=== PATIENT | male | born 1990 | race Caucasian/White ===

== ENCOUNTER → 2022-06-07 11:23 | Outpatient (CLI) | payer BC, SELFPAY | PROVIDERS: PCP Family Medicine; Visit Provider Family Medicine | DX: J11.1 Influenza due to unidentified influenza virus with other respiratory manifestations (principal) ==

== ENCOUNTER 2022-08-02 14:14 | Emergency (ER) | payer BC, SELFPAY ==
--- NOTE | 2022-08-02 14:22 | XR_ITS ---
FINAL REPORT CLINICAL HISTORY: SOA AND CONGESTION COMPARISON: 07/31/2016 FINDINGS: TWO-VIEW CHEST Two views of the chest were obtained. The heart size and pulmonary vascularity are within normal limits. The mediastinum is normal. No acute pulmonary abnormality is identified. There is no pneumothorax. The bony thorax is intact. IMPRESSION: No active cardiopulmonary disease. Reviewed, Interpreted and Dictated by Jesús Jackson MD Transcribed by Swati Guillen Authenticated and [facility]
[2022-08-02 14:50] VITALS: BP 159/101; PULSE 127; RESP 21; TEMP 36.9; O2SAT 97; BMI 61.0
[2022-08-02 14:51] LABS: Adenovirus,PCR Not Detected (NotDetected); Bordetella Pertussis Not Detected (NotDetected); Chlamydophila Pneumoniae, PCR Not Detected (NotDetected); Coronavirus 229E Not Detected (NotDetected); Coronavirus NL63 Not Detected (NotDetected); Coronavirus OC43 Not Detected (NotDetected); Coronovirus HKU1,PCR Not Detected (NotDetected); Human Metapneumovirus Not Detected (NotDetected); Influenza A, PCR Not Detected (NotDetected); Influenza AH1, 2009 Not Detected (NotDetected); Influenza AH1, PCR Not Detected (NotDetected); Influenza AH3,PCR Not Detected (NotDetected); Influenza B, PCR Not Detected (NotDetected); Mycoplasma Pneumoniae, PCR Not Detected (NotDetected); Parainfluenza 1, PCR Not Detected (NotDetected); Parainfluenza 2, PCR Not Detected (NotDetected); Parainfluenza 3, PCR Not Detected (NotDetected); Parainfluenza 4, PCR Not Detected (NotDetected); Respiratory Syncytial Virus Not Detected (NotDetected); Rhinovirus/Enterovirus Not Detected (NotDetected)
--- NOTE | 2022-08-02 15:21 | EXP.UTC ---
Discharge Plan Disposition Patient Disposition: Home, Self-Care Condition: Good Prescriptions Prescriptions: New azithromycin [Zithromax Z-Luis] 250 mg tablet See Rx Instructions .ROUTE .COMPLEX 5 Days Qty: 6 0RF Rx Instructions: For 250 mg dose pack: take 500 mg today (day 1), then 250 mg for 4 days (days 2-5) methylprednisolone [Medrol (Luis)] 4 mg tablets,dose pack See Rx Instructions .Route .COMPLEX 6 Days Qty: 21 0RF Rx Instructions: taper pack; guaifenesin [Mucinex] 600 mg tablet extended release 12hr 600 - 1,200 mg PO BID PRN (Reason: cough) Qty: 20 0RF benzonatate 100 mg capsule 100 mg PO TID PRN (Reason: cough) Qty: 30 0RF Referrals Follow up/Referrals: Rosalio Joyce MD [Primary Care Provider] - See instructions Activity Restrictions/Add. Instructions Additional Instructions/Restrictions: Start antibiotic today. Be sure to complete entire prescription even if feeling better Monitor temp. Tylenol every 4 hours as needed and / or ibuprofen every 6 hours as needed ( As long as your primary care physician has told you that it ok to take both. For fever/aches/pains ER if no less than 101 despite Tylenol or Motrin Humidifier/vaporizer or hot steamy shower Mucinex for your cough and cough suppressant only at night. Be sure to drink lots of water. *Tessalon Perles will not cause drowsiness but use at bedtime to help stop cough so that you may get some rest. *Start steroid today. Helps with inflammation therefore, cough and wheezing. Follow directions on the package. Reviewed side effects. Patient reports taking them before. Follow up IMMEDIATELY for new or worsening of symptoms OR no noticeable improvement over the next 48-72 hours. 911 immediately for any life threatening symptoms such as chest pain or difficulty breathing Clinical Impressions Clinical Impression: Sinusitis, Bronchitis Stand Alone Forms Stand Alone Forms: Work/School Release Instructions Patient Instructions: Sinusitis, Acute Bronchitis, DI for Sinusitis, Sinus Headache Discharge ED Provider: Valeria Conteh [facility] [place], [place] HPI General Stated complaint: sore throat, chest congestion, TORO Mode of Arrival: Ambulatory Source of Information: Patient Limitations: No Limitations Time Seen by Provider: 08/02/22 15:21 Description of Symptoms (Recalled from Triage Doc. by RN): PATIENT C/O SOA, HEADACHE, AND PRODUCTIVE COUGH X 3 DAYS HEENT Symptoms (Recalled from RN notes): Yes Resp Symptoms (Recalled from RN notes): Yes Skin Symptoms (Recalled from RN notes): No MS Symptoms (Recalled from RN notes): No Functional Status (Recalled from RN notes): WNL History of Present Illness Provider Complaint: Patient states that for the last couple of days he has been feeling a little SOA, having cough and burning in his chest when he coughs, sore throat sinus congestion and drainage and productive cough at times States that today he woke up feeling achy, having chills, and headache State that feels like it did when he had strep throat/tonsilitis before State that he called his PCP and they told him to come here Related Data Previous Rx's Medication Instructions Recorded azithromycin 250 mg tablet See Rx Instructions PO .COMPLEX 5 08/02/22 (Zithromax Z-Luis) days #6 tabs benzonatate 100 mg capsule 100 mg PO TID PRN cough #30 caps 08/02/22 guaifenesin 600 mg tablet, 600 - 1,200 mg PO BID PRN cough 08/02/22 extended release 12 hr (Mucinex) #20 tabs methylprednisolone 4 mg tablets in See Rx Instructions .Route 08/02/22 a dose pack (Medrol (Luis)) .COMPLEX 6 days #21 tabs Allergies Allergy/AdvReac Type Severity Reaction Status Date / Time No Known Allergies Allergy Verified 06/11/22 15:57 Worker's Comp Is this a Worker's Comp case?: No [facility] Disclaimer: The information contained in this section may have been updated after the patient was seen, as this information can be updated by other users.
[2022-08-02 15:36] LABS: UTC Strep Screen (Rapid) Negative (Negative)
[2022-08-02 16:27] VITALS: BP 124/87; PULSE 127; RESP 21; TEMP 36.9; O2SAT 97
[2022-08-02 19:20] LABS: Coronavirus 19, PCR Detected (NotDetected)
== END 2022-08-02 16:30 | disposition home or self-care (01) ==
PROVIDERS: Emergency Provider Nurse Practitioner; PCP Family Medicine
DX: J32.9 Chronic sinusitis, unspecified (principal); J40 Bronchitis, not specified as acute or chronic
CPT/HCPCS: 71046; 87581; 87632; 87798; 87880; 99212; 99214; C9803; G0463; U0003; U0005

== ENCOUNTER 2023-10-14 23:23 | Outpatient (CLI) | payer BC, SELFPAY | END 2023-10-14 23:59 | LOC: LAB.DROPOF 23:23 | PROVIDERS: PCP Nurse Practitioner Family; Visit Provider Nurse Practitioner Family | DX: J02.9 Acute pharyngitis, unspecified (principal) | CPT/HCPCS: 87070 ==

== ENCOUNTER 2024-01-21 10:30 | Outpatient (CLI) | payer BC, SELFPAY ==
[2024-01-21 17:41] LABS: Hemoglobin A1C 4.9 % (4.0-6.0)
== END 2024-01-21 23:59 | disposition home or self-care (01) ==
LOC: LAB.DROPOF 01-22 10:30
PROVIDERS: PCP Family Medicine; Visit Provider Family Medicine
DX: E66.01 Morbid (severe) obesity due to excess calories (principal); Z68.44 Body mass index [BMI] 60.0-69.9, adult
CPT/HCPCS: 83036

== ENCOUNTER 2024-07-15 15:52 | Emergency (ER) | payer BC, SELFPAY ==
[2024-07-15 15:53] VITALS: BP 140/68; PULSE 80; RESP 18; TEMP 36.7; O2SAT 98; BMI 51.8
--- NOTE | 2024-07-15 15:59 | ED_ITS ---
Discharge Plan Disposition Patient Disposition: Home, Self-Care Condition: Good Prescriptions Prescriptions: New ondansetron 4 mg tablet,disintegrating 4 mg PO Q6H PRN (Reason: nausea and vomiting) Qty: 10 0RF No Action cetirizine [Zyrtec] 10 mg tablet 10 mg PO DAILY PRN bupropion HCl 300 mg tablet extended release 24 hr 300 mg PO DAILY Qty: 30 3RF Zepbound 5 mg/0.5 mL pen injector See Rx Instructions .ROUTE .COMPLEX Qty: 4 0RF Dose Instruction: INJECT 5 MG SUBCUTANEOUSLY ONCE A WEEK FOR 4 WEEKS Rx Instructions: INJECT 5 MG SUBCUTANEOUSLY ONCE A WEEK FOR 4 WEEKS Referrals Follow up/Referrals: Rosalio Joyce MD [Primary Care Provider] - See instructions Activity Restrictions/Add. Instructions Additional Instructions/Restrictions: Return to the emergency department any worsening signs or symptoms, decreased by mouth intake, any worsening abdominal pain vomiting or diarrhea, that last more than 24 to 48 hours. Clinical Impressions Clinical Impression: Abdominal pain, Diarrhea Stand Alone Forms Stand Alone Forms: Work/School Release Instructions Patient Instructions: DI for Acute Abdominal Pain Print Language Print Language: Gibralt[place] Discharge ED Provider: Sadiq Sanchez General Adult HPI <OLIVIER Conway - Last Filed: 07/15/24 18:49> General Chief complaint: Abdominal Pain Stated complaint: sent by Dr. Joyce abd pain Time Seen by Provider: 07/15/24 15:55 Mode of Arrival: Ambulatory Source of Information: Patient Limitations: No Limitations History of Present Illness HPI narrative: 34-year-old male presents to the emergency department with diffuse abdominal pain nausea diarrhea that started around 8:30 PM last night. Patient was seen by his primary care provider today and instructed to come to the emergency department for further workup/care. Patient denies any cough congestion chest pain, does make some shortness of breath, due to the pain, he admits to subjective fever and chills, denies any constipation, denies any vomiting, denies any hematuria melena hematochezia or hematemesis, denies any other urinary symptomatology. Denies any history of substance use to include tobacco alcohol or other drug use, he has other past medical history consistent with obesity, anxiety/depression, patient is currently on a GLP-1 inhibitor and has been on it for the last several months for weight loss, but the past medical history consistent with umbilical hernia repair. Initial triage vitals unremarkable. Onset (ago): hour(s) Related Data Home Medications ?Medication ?Instructions ?Recorded ?Confirmed cetirizine 10 mg tablet (Zyrtec) 10 mg PO DAILY PRN 01/21/24 07/15/24 Previous Rx's ?Medication ?Instructions ?Recorded bupropion HCl 300 mg 24 hr tablet, 300 mg PO DAILY #30 tabs 04/13/24 extended release tirzepatide (weight loss) 5 mg/0.5 See Rx Instructions .Route 07/14/24 mL subcutaneous pen injector .COMPLEX #4 mL (Zepbound) ondansetron 4 mg disintegrating 4 mg PO Q6H PRN nausea and 07/15/24 tablet vomiting #10 tabs Allergies Allergy/AdvReac Type Severity Reaction Status Date / Time acetaminophen (From [place]) AdvReac diaphoresis Verified 07/15/24 14:55 hydrocodone (From [place]) AdvReac diaphoresis Verified 07/15/24 14:55 PFS <OLIVIER Conway - Last Filed: 07/15/24 18:49> [facility] Disclaimer: The information contained in this section may have been updated after the patient was seen, as this information can be updated by other users. Medical History Elevated blood pressure reading Surgical History History of carpal tunnel release History of dental surgery H/O hernia repair Family History Father Hypertension Grandmother Coronary artery disease Cancer Social History Smoking Status: Never smoker second hand exposure: No alcohol intake: never substance use type: denies use current occupational status: employed Travel in the last 8 weeks: None household members: children housing: house marital status: Have you lived/traveled outside [place] in past 30 days?: No Contact w/someone who lives/traveled outside US past 30 days?: No Exposure to someone with infectious disease in past 14 days?: No Do you have a fever (greater than 100.4 F or 38 C)?: No Have you tested positive for COVID-19: No Exposed to someone with COVID-19 in past 14 days?: No Do you have a sore throat?: No Do you have a cough?: No Do you have any weakness?: No Do you have any diarrhea?: No Are you experiencing any unusual bleeding?: No Do you have any muscle aches/pain?: No Do you have any abdominal pain?: Yes Are you experiencing loss of taste or smell?: No Other Medical History Have you received the Pneumonia Vaccine: No <OLIVIER Conway - Last Filed: 07/15/24 18:49> ROS Obtained: Yes All systems reviewed & no additional complaints except as documented Physical Exam <OLIVIER Conway - Last Filed: 07/15/24 18:49> General General appearance: alert and in no apparent distress Comment: In no acute distress, however is uncomfortable appearing in obvious pain Head Head exam: atraumatic and normocephalic Eye Eye exam: Present PERRL and EOMI ENT ENT exam: Present mucous membranes moist Neck Neck exam: Present normal inspection Chest Chest inspection: Present normal inspection and symmetric chest wall rise Respiratory Respiratory exam: Present normal lung sounds bilaterally; Absent respiratory distress Cardiovascular Cardiovascular exam: Present regular rate and normal rhythm Abdominal Exam Abdominal exam: Present soft, tenderness, guarding, Chilel's sign, tenderness at McBurney's Point and scar; Absent rebound or rigidity Abdominal tenderness: Present diffuse, mild and moderate Comment: There is mild to moderate diffuse abdominal pain to palpation, there is a positive McBurney's point, positive Chilel sign, over the patient is diffusely tender throughout all 4 quadrants of his abdomen, there is some mild voluntary guarding but no rebound or rigidity, abdomen is soft. Extremities Exam Extremities exam: Present normal inspection Neurological Exam Neurological exam: Present alert and oriented X3 Psychiatric Psychiatric exam: Present normal affect Skin Skin exam: Present warm and dry Medical Decision Making <OLIVIER Conway - Last Filed: 07/15/24 18:49> Medical Records Medical records reviewed: Yes I reviewed the patient's medical records. Screening: Per USPSTF and CDC recommendations, given the prevalence of disease in our region, it is our hospital?s policy to screen for HIV and viral Hepatitis for all patients aged 18 and over and those with ongoing risk factors. Jose Inquiry Pt receiving controlled substance: Yes Jose was queried for this patient: No Risks and benefits of using a controlled substance: were discussed with pt by me Vital Signs: 07/15/24 15:53 07/15/24 16:03 07/15/24 16:31 Temperature 98.0 F Temperature Source Oral Pulse Rate 81 75 Pulse Rate [Radial] 80 Respiratory Rate 18 Blood Pressure 140/98 H 143/82 H Blood Pressure [Right Arm] 140/68 Blood Pressure Mean [Right Arm] 92 Blood Pressure Source Blood Pressure Source [Right Arm] Automatic Cuff Blood Pressure Position [Right Arm] Sitting 02 Sat by Pulse Oximetry 98 97 99 Oxygen Delivery Method Room Air Room Air 07/15/24 18:25 07/15/24 18:42 07/15/24 18:49 Temperature 98 F 98.2 F Temperature Source Pulse Rate 84 84 78 Pulse Rate [Radial] Respiratory Rate 14 18 Blood Pressure 133/86 111/66 111/66 Blood Pressure [Right Arm] Blood Pressure Mean [Right Arm] Blood Pressure Source Automatic Cuff Blood Pressure Source [Right Arm] Blood Pressure Position [Right Arm] 02 Sat by Pulse Oximetry 100 Oxygen Delivery Method Room Air Room Air Lab Data Lab results reviewed: Yes I reviewed the patient's lab results. Lab Results 07/15/24 16:02: WBC 13.8 H, RBC 5.92, Hgb 16.5, Hct 51.4, MCV 86.8, MCH 27.9, MCHC 32.1, RDW 13.1, Plt Count 312, MPV 10.6 H, Neut % (Auto) 75.7, Lymph % (Auto) 15.2, [place] % (Auto) 6.4, Eos % (Auto) 1.8, Baso % (Auto) 0.2, Neut # (Auto) 10.4 H, Lymph # (Auto) 2.1, [place] # (Auto) 0.9, Eos # (Auto) 0.3, Baso # (Auto) 0.0, Sodium 140, Potassium 4.0, Chloride 103, Carbon Dioxide 28, Anion Gap 13.0, BUN 16, Creatinine 1.10, Estimated Creat Clear 107, Estimated GFR 77, Est GFR ( Amer) 93, Glucose 108 H, Calcium 9.2, Magnesium 1.8, Total Bilirubin 0.7, AST 29, ALT 37, Alkaline Phosphatase 80, Troponin I < 0.01, NT-Pro-B Natriuret Pep 22.9, Total Protein 8.1, Albumin 4.5, Globulin 3.6 H, Albumin/Globulin Ratio 1.3, Lipase 47 07/15/24 16:02 07/15/24 16:02 Orders (Tests/Meds): ED MEDICATIONS Discontinued Medications Generic Name Dose Route Start Last Admin Trade Name Freq PRN Reason Stop Dose Admin Iopamidol 75 ml 07/15/24 17:16 07/15/24 17:17 Iopamidol-370 (76%);100ml Bottle IV 07/15/24 17:17 75 ml ONCE ONE Administration Morphine Sulfate 4 mg 07/15/24 16:30 07/15/24 16:38 Morphine 4mg/Ml Syringe IV 07/15/24 16:31 4 mg ONCE ONE Administration Ondansetron HCl 4 mg 07/15/24 16:30 07/15/24 16:38 Ondansetron 4mg/2ml Vial IV 07/15/24 16:31 4 mg ONCE ONE Administration Promethazine HCl 1 packet 07/15/24 18:48 07/15/24 18:55 Promethazine 12.5mg Supp Take Home Pack (4) RC 08/14/24 18:47 1 packet Q6HP PRN Administration Nausea And Vomiting Sodium Chloride 10 ml 07/15/24 17:16 07/15/24 17:17 Sodium Chloride 0.9% 10ml Syr (Rad Only) IV 07/15/24 17:17 10 ml ONCE ONE Administration ORDERS Category Date Time Status CT abdomen pelvis w con Stat Cat Scan 07/15/24 16:12 Completed XR chest portable Stat Exams 07/15/24 16:16 Completed Complete Blood Count Auto Diff Stat Lab 07/15/24 16:02 Completed Comprehensive Metabolic Panel Stat Lab 07/15/24 16:02 Completed Lipase Stat Lab 07/15/24 16:02 Completed Magnesium Stat Lab 07/15/24 16:02 Completed NT Pro Brain Natriuretic Pep. Stat Lab 07/15/24 16:02 Completed Troponin I Stat Lab 07/15/24 16:02 Completed Medical Decision Narrative: 34-year-old male presents emerged part with abdominal pain nausea, diarrhea started last night, differential diagnose include but not limited to bowel obstruction, volvulus, cholelithiasis, cholecystitis, appendicitis, diverticulitis, colitis, gastroenteritis, PUD, gastritis, GERD, ACS, cardiac arrhythmia, electrolyte disturbance, pneumonia, choledocholithiasis, pancreatitis. I discussed patient case with attending physician Dr. Sanchez Will obtain basic laboratory studies, lactic acid level lipase magnesium level proBNP troponin urinalysis will obtain chest x-ray and CT abdomen pelvis with contrast for further evaluation characterization, will give 4 mg IV Zofran for nausea and 4 mg IV morphine for pain. CBC is notable for minimal leukocytosis at 13.8, otherwise unremarkable CMP unremarkable, lipase within normal limits Troponin within normal limit. Was notified by nurse that the patient did have an episode of vomiting after medication ministration, unsure of medication induced versus abdominal pathology. Reviewed the patient's chest x-ray along the corresponding radiologic report no acute thoracic process. I reviewed the patient's CT abdomen pelvis with contrast along the corresponding radiologic report evidence of diarrheal state, possibly mild generalized and or colitis, no evidence of bowel obstruction or perforation, mild hepatomegaly and steatosis, mild splenomegaly, 3 x 2 cm somewhat nodule subcutaneous density in the left inguinal region, with mild adjacent stranding consider nodular fibrosis for cellulitis, there is a 2.5 mm pulmonary nodule present in the left lower lobe. I discussed these results with the patient family the bedside, I visualized the patient's left inguinal region I do not see any signs of erythema or any palpable mass patient has no pain this area as well. Recommend p.o. intake, with fluids and solids, will prescribe 4 mg p.o. Zofran for nausea, return to the emerged part with any worsening signs or symptoms, patient then voiced understanding and agreed with the current discharge plan/treatment plan. Will follow-up with PCP as directed. The patient's pharmacy is closed upon discharge, will give patient 12.5 mg Phenergan take-home pack, patient was instructed not to take both Phenergan and ondansetron together. Patient will use one of the other for his as needed nausea and vomiting. <Sadiq Sanchez MD - Last Filed: 07/15/24 23:25> Vital Signs: 07/15/24 15:53 07/15/24 16:03 07/15/24 16:31 Temperature 98.0 F Temperature Source Oral Pulse Rate 81 75 Pulse Rate [Radial] 80 Respiratory Rate 18 Blood Pressure 140/98 H 143/82 H Blood Pressure [Right Arm] 140/68 Blood Pressure Mean [Right Arm] 92 Blood Pressure Source Blood Pressure Source [Right Arm] Automatic Cuff Blood Pressure Position [Right Arm] Sitting 02 Sat by Pulse Oximetry 98 97 99 Oxygen Delivery Method Room Air Room Air 07/15/24 18:25 07/15/24 18:42 07/15/24 18:49 Temperature 98 F 98.2 F Temperature Source Pulse Rate 84 84 78 Pulse Rate [Radial] Respiratory Rate 14 18 Blood Pressure 133/86 111/66 111/66 Blood Pressure [Right Arm] Blood Pressure Mean [Right Arm] Blood Pressure Source Automatic Cuff Blood Pressure Source [Right Arm] Blood Pressure Position [Right Arm] 02 Sat by Pulse Oximetry 100 Oxygen Delivery Method Room Air Room Air Lab Data Lab Results 07/15/24 16:02: WBC 13.8 H, RBC 5.92, Hgb 16.5, Hct 51.4, MCV 86.8, MCH 27.9, MCHC 32.1, RDW 13.1, Plt Count 312, MPV 10.6 H, Neut % (Auto) 75.7, Lymph % (Auto) 15.2, [place] % (Auto) 6.4, Eos % (Auto) 1.8, Baso % (Auto) 0.2, Neut # (Auto) 10.4 H, Lymph # (Auto) 2.1, [place] # (Auto) 0.9, Eos # (Auto) 0.3, Baso # (Auto) 0.0, Sodium 140, Potassium 4.0, Chloride 103, Carbon Dioxide 28, Anion Gap 13.0, BUN 16, Creatinine 1.10, Estimated Creat Clear 107, Estimated GFR 77, Est GFR ( Amer) 93, Glucose 108 H, Calcium 9.2, Magnesium 1.8, Total Bilirubin 0.7, AST 29, ALT 37, Alkaline Phosphatase 80, Troponin I < 0.01, NT-Pro-B Natriuret Pep 22.9, Total Protein 8.1, Albumin 4.5, Globulin 3.6 H, Albumin/Globulin Ratio 1.3, Lipase 47 Orders (Tests/Meds): ED MEDICATIONS Discontinued Medications Generic Name Dose Route Start Last Admin Trade Name Freq PRN Reason Stop Dose Admin Iopamidol 75 ml 07/15/24 17:16 07/15/24 17:17 Iopamidol-370 (76%);100ml Bottle IV 07/15/24 17:17 75 ml ONCE ONE Administration Morphine Sulfate 4 mg 07/15/24 16:30 07/15/24 16:38 Morphine 4mg/Ml Syringe IV 07/15/24 16:31 4 mg ONCE ONE Administration Ondansetron HCl 4 mg 07/15/24 16:30 07/15/24 16:38 Ondansetron 4mg/2ml Vial IV 07/15/24 16:31 4 mg ONCE ONE Administration Promethazine HCl 1 packet 07/15/24 18:48 07/15/24 18:55 Promethazine 12.5mg Supp Take Home Pack (4) RC 08/14/24 18:47 1 packet Q6HP PRN Administration Nausea And Vomiting Sodium Chloride 10 ml 07/15/24 17:16 07/15/24 17:17 Sodium Chloride 0.9% 10ml Syr (Rad Only) IV 07/15/24 17:17 10 ml ONCE ONE Administration ORDERS Category Date Time Status CT abdomen pelvis w con Stat Cat Scan 07/15/24 16:12 Completed XR chest portable Stat Exams 07/15/24 16:16 Completed Complete Blood Count Auto Diff Stat Lab 07/15/24 16:02 Completed Comprehensive Metabolic Panel Stat Lab 07/15/24 16:02 Completed Lipase Stat Lab 07/15/24 16:02 Completed Magnesium Stat Lab 07/15/24 16:02 Completed NT Pro Brain Natriuretic Pep. Stat Lab 07/15/24 16:02 Completed Troponin I Stat Lab 07/15/24 16:02 Completed Medical Decision Narrative: 34-year-old male presents emerged part with abdominal pain nausea, diarrhea started last night, differential diagnose include but not limited to bowel obstruction, volvulus, cholelithiasis, cholecystitis, appendicitis, diverticulitis, colitis, gastroenteritis, PUD, gastritis, GERD, ACS, cardiac arrhythmia, electrolyte disturbance, pneumonia, choledocholithiasis, pancreatitis. I discussed patient case with attending physician Dr. Sanchez Will obtain basic laboratory studies, lactic acid level lipase magnesium level proBNP troponin urinalysis will obtain chest x-ray and CT abdomen pelvis with contrast for further evaluation characterization, will give 4 mg IV Zofran for nausea and 4 mg IV morphine for pain. CBC is notable for minimal leukocytosis at 13.8, otherwise unremarkable CMP unremarkable, lipase within normal limits Troponin within normal limit. Was notified by nurse that the patient did have an episode of vomiting after medication ministration, unsure of medication induced versus abdominal pathology. Reviewed the patient's chest x-ray along the corresponding radiologic report no acute thoracic process. I reviewed the patient's CT abdomen pelvis with contrast along the corresponding radiologic report evidence of diarrheal state, possibly mild generalized and or colitis, no evidence of bowel obstruction or perforation, mild hepatomegaly and steatosis, mild splenomegaly, 3 x 2 cm somewhat nodule subcutaneous density in the left inguinal region, with mild adjacent stranding consider nodular fibrosis for cellulitis, there is a 2.5 mm pulmonary nodule present in the left lower lobe. I discussed these results with the patient family the bedside, I visualized the patient's left inguinal region I do not see any signs of erythema or any palpable mass patient has no pain this area as well. Recommend p.o. intake, with fluids and solids, will prescribe 4 mg p.o. Zofran for nausea, return to the emerged part with any worsening signs or symptoms, patient then voiced understanding and agreed with the current discharge plan/treatment plan. Will follow-up with PCP as directed. The patient's pharmacy is closed upon discharge, will give patient 12.5 mg Phenergan take-home pack, patient was instructed not to take both Phenergan and ondansetron together. Patient will use one of the other for his as needed nausea and vomiting. I was consulted by the LILY, and we discussed the complexity of the problems being addressed.I approved the treatment and management plan for this patient?s care in the Emergency Department, thus performing a substantive portion of the medical decision making.Signed, Sadiq Sanchez MD Critical Care <OLIVIER Conway - Last Filed: 07/15/24 18:49> Critical Care Time Critical Care Time: No
[2024-07-15 16:03] VITALS: BP 140/98; PULSE 81; O2SAT 97
--- NOTE | 2024-07-15 16:12 | CT_ITS ---
PROCEDURE INFORMATION: Exam: CT Abdomen And Pelvis With Contrast Exam date and time: 07/15/2024 5:14 PM Age: 34 years old Clinical indication: Abdominal pain; Localized; Upper; Additional info: Abd pain, nausea, diarrhea TECHNIQUE: Imaging protocol: Computed tomography of the abdomen and pelvis with contrast. Radiation optimization: All CT scans at this facility use at least one of these dose optimization techniques: automated exposure control; mA and/or kV adjustment per patient size (includes targeted exams where dose is matched to clinical indication); or iterative reconstruction. Contrast material: ISOVUE; Contrast volume: 75 ml; Contrast route: IV; COMPARISON: CR XR CHEST PORTABLE 07/15/2024 5:04 PM FINDINGS: Lungs: Minor subsegmental atelectasis in the dependent right lung base. 2.5 mm pulmonary nodule posterolateral left lower lobe series 3, image 2. If patient does not have known cancer, follow up should be based on clinical information because of the low risk of cancer in this age group. (Jana et al., Fleischner Society, 2017). Heart: Heart size normal. Esophagus: The visualized distal esophagus is largely contracted without gross abnormality. Liver: Mild hepatomegaly measuring 24 cm craniocaudal. Suspect mild hepatic steatosis. Normal contour. No mass lesions. No intrahepatic biliary ductal dilatation. Gallbladder and biliary ducts: Normal. No calcified stones. No ductal dilation. Pancreas: Normal. No inflammatory changes or ductal dilation. Spleen: Mild splenomegaly measuring 15 cm craniocaudal. No focal splenic lesions. Adrenal glands: Normal. No adrenal mass. Kidneys and ureters: No acute abnormalities. No hydronephrosis or hydroureter. No urinary tract stones are identified. Stomach and bowel: The stomach is unremarkable. Mildly excessive fluid content in the distal small bowel and throughout the colon suspicious for developing diarrheal state, possibly mild generalized enterocolitis. No evidence of bowel obstruction or perforation. Appendix: The appendix is normal in caliber and demonstrates no evidence of appendicitis. Intraperitoneal space: No peritoneal free fluid or air. Vasculature: No acute process. No abdominal aortic aneurysm. Lymph nodes: No adenopathy. Urinary bladder: Unremarkable as visualized. Reproductive: Unremarkable as visualized. Bones/joints: No acute osseous abnormalities. Soft tissues: 3 x 2 cm nodular subcutaneous density in the left inguinal region with adjacent stranding, possibly cellulitis versus nodular fibrosis there is no soft tissue air. No foreign body. No fluid collection. IMPRESSION: 1. Evidence of diarrheal state, possibly mild generalized enterocolitis. No evidence of bowel obstruction or perforation. 2. Mild hepatomegaly and steatosis. 3. Mild splenomegaly. 4. 3 x 2 cm somewhat nodular subcutaneous density in the left inguinal region with mild adjacent stranding, consider nodular fibrosis versus cellulitis. 5. A 2.5 mm pulmonary nodule is present in the left lower lobe. Please see recommendations above. 6. Additional nonemergent findings detailed above.
--- NOTE | 2024-07-15 16:16 | XR_ITS ---
PROCEDURE INFORMATION: Exam: XR Chest Exam date and time: 07/15/2024 5:04 PM Age: 34 years old Clinical indication: Shortness of breath; Additional info: Shortness of air TECHNIQUE: Imaging protocol: Radiologic exam of the chest. Views: 1 view. COMPARISON: CR XR CHEST 2V 08/02/2022 3:00 PM FINDINGS: Lungs: Normal pulmonary expansion. Pulmonary vasculature grossly normal. No gross pulmonary infiltrates or edema pattern. Pleural spaces: No pleural effusion. No pneumothorax. Heart/Mediastinum: Heart size normal. No tracheal/mediastinal shift. Bones/joints: No acute osseous abnormalities are identified. IMPRESSION: No acute thoracic process.
[2024-07-15 16:31] VITALS: BP 143/82; PULSE 75; O2SAT 99
[2024-07-15 16:33] LABS: Chloride 103 mmol/L (98-107)
[2024-07-15 16:34] LABS: Albumin Level 4.5 g/dl (3.5-5.0); Sodium 140 mmol/L (136-145)
[2024-07-15 16:36] LABS: Blood Urea Nitrogen 16 mg/dl (9-20); Creatinine Clearance Estimated 107 mL/min (50-200); Estimated Glomerular Filt Rate 77 ml/min (>60); GFR (African American) 93 ML/MIN (>60)
[2024-07-15 16:37] LABS: Alanine Aminotransferase 37 U/L (12-78); Albumin/Globulin Ratio 1.3 (1.1-1.8); Alkaline Phosphatase 80 U/L (38-126); Aspartate Amino Transferase 29 U/L (17-59); Bilirubin,Total 0.7 mg/dl (0.2-1.3); Calcium 9.2 mg/dl (8.4-10.2); Carbon Dioxide 28 mmol/L (22.0-30.0); Globulin 3.6 g/dL (1.3-3.2); Glucose 108 mg/dl (74-100); Lipase 47 U/L (23-300); Magnesium 1.8 mg/dl (1.6-2.3); Total Protein,Serum 8.1 g/dl (6.3-8.2)
[2024-07-15] MEDS: MORPHINE 4MG/ML SYRINGE 4 MG IV (16:38)
[2024-07-15] MEDS: ONDANSETRON 4MG/2ML VIAL 4 MG IV (16:38)
[2024-07-15 16:39] LABS: Basophils % 0.2 % (0.1-2.0); Eosinophils # 0.3 K/mm3 (0.0-0.4); Eosinophils % 1.8 % (0.1-12.0); Hematocrit 51.4 % (42.0-52.0); Hemoglobin 16.5 g/dL (14.1-18.0); Lymphocytes # 2.1 K/mm3 (0.7-4.5); Lymphocytes % 15.2 % (10-50); Mean Corpuscular HGB Conc 32.1 g/dL (31.8-35.4); Mean Corpuscular Hemoglobin 27.9 pg (27.0-31.2); Mean Corpuscular Volume 86.8 fl (80-94); Mean Platelet Volume 10.6 fl (7.4-10.4); Monocytes # 0.9 K/mm3 (0.1-1.0); Monocytes % 6.4 % (1.7-9.3); Neutrophils # 10.4 K/mm3 (1.8-7.8); Neutrophils % 75.7 % (37.0-80.0); Platelet Count 312 K/mm3 (142-424); Red Blood Count 5.92 M/mm3 (4.60-6.20); Red Cell Distribution Width 13.1 % (11.5-17.5); White Blood Count 13.8 K/mm3 (4.8-10.8)
[2024-07-15 16:46] LABS: NT Pro Brain Natriuretic Pep. 22.9 pg/mL (0-125)
--- NOTE | 2024-07-15 16:51 | PC.NURSE ---
Pt has one episode of emesis
[2024-07-15 16:52] LABS: Troponin I < 0.01 ng/ml (0.00-0.034)
[2024-07-15] MEDS: IOPAMIDOL-370 (76%);100ML BOTTLE 75 ML IV (17:17)
[2024-07-15] MEDS: SODIUM CHLORIDE 0.9% 10ML SYR (RAD ONLY) 10 ML IV (17:17)
--- NOTE | 2024-07-15 17:46 | PC.NURSE ---
Provided patient with urinal to provide urine sample.
[2024-07-15 18:25] VITALS: BP 133/86; PULSE 84; O2SAT 100
[2024-07-15 18:42] VITALS: BP 111/66; PULSE 84; RESP 14; TEMP 36.6; O2SAT 96
[2024-07-15 18:49] VITALS: BP 111/66; PULSE 78; RESP 18; TEMP 36.8; O2SAT 98
[2024-07-15] MEDS: PROMETHAZINE 12.5 MG 1 PACKET RC (18:55)
== END 2024-07-15 18:58 | disposition home or self-care (01) ==
PROVIDERS: Physician Assistant; Emergency Provider Emergency Medicine; PCP Family Medicine
DX: R10.9 Unspecified abdominal pain (principal); R11.0 Nausea; R19.7 Diarrhea, unspecified
CPT/HCPCS: 71045; 74177; 80053; 83690; 83735; 83880; 84484; 85025; 96374; 96375; 99284; J2270; J2405; Q9967

== ENCOUNTER 2024-10-12 15:25 | Outpatient (CLI) | payer BC, SELFPAY ==
--- NOTE | 2024-10-12 15:31 | XR_ITS ---
FINAL REPORT CLINICAL HISTORY: abdominal pain x 1 day; vomiting; absent bowel sounds COMPARISON: None FINDINGS: A PA view of the chest was obtained. The cardiac and mediastinal silhouettes are within normal limits. The lungs are clear. There is no free air beneath the diaphragm. Multiple upright and supine views of the abdomen reveal multiple air-fluid levels in bowel loops on the upright views. The bowel loops measure up to 3.5 cm in diameter. There does appear to be gas present in the colon. There are no pathologic calcifications. No acute osseous abnormalities identified. IMPRESSION: Multiple air-fluid levels in bowel loops on the upright views. As described above, there does appear to be gas present in the colon. May represent an early small bowel obstruction versus an ileus. Continued follow-up is suggested. Reviewed, Interpreted and Dictated by Dank Quintero MD Transcribed by Marisol Murillo Authenticated and [facility]
== END 2024-10-12 23:59 | disposition home or self-care (01) ==
LOC: RAD 15:27
PROVIDERS: PCP Family Medicine; Visit Provider Family Medicine
DX: R19.11 Absent bowel sounds (principal); R11.10 Vomiting, unspecified; R10.9 Unspecified abdominal pain
CPT/HCPCS: 74021

== ENCOUNTER 2025-02-01 17:35 | Emergency (ER) | payer BC, SELFPAY ==
--- NOTE | 2025-02-01 17:37 | [facility].EDGENADL ---
Discharge Plan Disposition Patient Disposition: Home, Self-Care Prescriptions Prescriptions: New ondansetron 4 mg tablet,disintegrating 4 mg PO Q8H PRN (Reason: nausea and vomiting) 4 Days Qty: 12 0RF No Action cetirizine [Zyrtec] 10 mg tablet 10 mg PO DAILY PRN (Reason: Allergic Symptoms) bupropion HCl 300 mg tablet extended release 24 hr 300 mg PO DAILY Zepbound 5 mg/0.5 mL pen injector 5 mg SQ WEEKLY ascorbic acid (vitamin C) [Super C] 500 mg Tablet 500 mg PO DAILY Referrals Follow up/Referrals: Rosalio Joyce MD [Primary Care Provider, Internal Medicine] - See instructions Activity Restrictions/Add. Instructions Additional Instructions/Restrictions: At this time it was felt you are safe to be discharged home. If new or worsening symptoms please do not hesitate to return the emergency department. Please take your medication as prescribed and if your symptoms are not improving within 5 days please follow-up with your family doctor. Clinical Impressions Clinical Impression: Gastroenteritis, Abdominal pain Stand Alone Forms Stand Alone Forms: Work/School Release Instructions Patient Instructions: DI for Acute Abdominal Pain Print Language Print Language: Telugu Discharge ED Provider: Mark Valverde General Adult HPI <OLIVIER Luna - Last Filed: 02/01/25 18:48> General Chief complaint: Abdominal Pain Stated complaint: V/D,Stomach pain Time Seen by Provider: 02/01/25 17:37 History of Present Illness HPI narrative: Patient presents for evaluation of right-sided abdominal pain. Patient has had right-sided abdominal pain since Saturday. He has had associated nausea vomiting and loose stool. He has a surgical history of umbilical hernia repair but has already had 2 partial small bowel obstructions this year so far. He has not required further surgery thus far. He reports no fever shortness of breath chills hemoptysis hematochezia melena hematemesis hematuria dysuria. Related Data Home Medications ?Medication ?Instructions ?Recorded ?Confirmed cetirizine 10 mg tablet (Zyrtec) 10 mg PO DAILY PRN Allergic 01/21/24 02/01/25 Symptoms ascorbic acid (vitamin C) 500 mg 500 mg PO DAILY 02/01/25 02/01/25 tablet bupropion HCl 300 mg 24 hr tablet, 300 mg PO DAILY 02/01/25 02/01/25 extended release tirzepatide (weight loss) 5 mg/0.5 5 mg SQ WEEKLY 02/01/25 02/01/25 mL subcutaneous pen injector (Zepbound) Previous Rx's ?Medication ?Instructions ?Recorded ondansetron 4 mg disintegrating 4 mg PO Q8H PRN nausea and 02/01/25 tablet vomiting 4 days #12 tabs Allergies Allergy/AdvReac Type Severity Reaction Status Date / Time hydrocodone (From [place]) AdvReac diaphoresis Verified 10/19/24 11:47 PFS <OLIVIER Luna - Last Filed: 02/01/25 18:48> PFS Disclaimer: The information contained in this section may have been updated after the patient was seen, as this information can be updated by other users. Medical History Elevated blood pressure reading Surgical History History of carpal tunnel release History of dental surgery H/O hernia repair Family History Father Hypertension Grandmother Coronary artery disease Cancer Social History Smoking Status: Never smoker second hand exposure: No alcohol intake: never substance use type: denies use current occupational status: employed Travel in the last 8 weeks?: None household members: children housing: house marital status: Have you lived/traveled outside US in past 30 days?: No Contact w/someone who lives/traveled outside US past 30 days?: No Exposure to someone with infectious disease in past 14 days?: No Do you have a fever (greater than 100.4 F or 38 C)?: No Have you tested positive for COVID-19?: No Exposed to someone with COVID-19 in past 14 days?: No Do you have a sore throat?: No Do you have a cough?: No Do you have any weakness?: No Do you have any diarrhea?: No Are you experiencing any unusual bleeding?: No Do you have any muscle aches/pain?: No Do you have any abdominal pain?: No Are you experiencing loss of taste or smell?: No Other Medical History Have you received the Pneumonia Vaccine: No <OLIVIER Luna - Last Filed: 02/01/25 18:48> ROS Obtained: Yes Systems reviewed as appropriate & no additional complaints except as documented Physical Exam <OLIVIER Luna - Last Filed: 02/01/25 18:48> General General appearance: alert and in no apparent distress Respiratory Respiratory exam: Present normal lung sounds bilaterally Cardiovascular Cardiovascular exam: Present regular rate Neurological Exam Neurological exam: Present alert and oriented X3 Medical Decision Making <OLIVIER Luna - Last Filed: 02/01/25 18:48> Medical Records Medical records reviewed: Yes I reviewed the patient's medical records. Screening: Per USPSTF and CDC recommendations, given the prevalence of disease in our region, it is our hospital?s policy to screen for HIV and viral Hepatitis for all patients aged 18 and over and those with ongoing risk factors. Jose Inquiry Pt receiving controlled substance: No Vital Signs: 02/01/25 17:49 02/01/25 19:30 Temperature 97.6 F Temperature Source Oral Pulse Rate 91 H Pulse Rate [Left] 105 H Respiratory Rate 16 17 Blood Pressure 122/81 Blood Pressure [Right Arm] 133/92 H Blood Pressure Mean 94 Blood Pressure Mean [Right Arm] 105 Blood Pressure Source [Right Arm] Automatic Cuff Blood Pressure Position [Right Arm] Sitting 02 Sat by Pulse Oximetry 100 96 Oxygen Delivery Method Room Air Lab Data Lab results reviewed: Yes I reviewed the patient's lab results. Lab Results 02/01/25 18:00: WBC 17.8 H, RBC 6.16, Hgb 17.8, Hct 54.1 H, MCV 87.8, MCH 28.9, MCHC 32.9, RDW 13.6, Plt Count 312, MPV 10.6 H, Neut % (Auto) 75.6, Lymph % (Auto) 14.2, [place] % (Auto) 6.8, Eos % (Auto) 2.5, Baso % (Auto) 0.3, Neut # (Auto) 13.4 H, Lymph # (Auto) 2.5, [place] # (Auto) 1.2 H, Eos # (Auto) 0.4, Baso # (Auto) 0.1, Sodium 136, Potassium 4.3, Chloride 101, Carbon Dioxide 25, Anion Gap 14.3, BUN 24 H, Creatinine 1.20, Estimated Creat Clear 98, Estimated GFR 69, Est GFR ( Amer) 84, Glucose 119 H, Calcium 9.7, Magnesium 2.0, Total Bilirubin 0.8, AST 32, ALT 36, Alkaline Phosphatase 90, C-Reactive Protein 15.1 H, Total Protein 10.4 H D, Albumin 4.6, Globulin 5.8 H, Albumin/Globulin Ratio 0.8 L, Lipase 55, Procalcitonin 0.105, HCV Ab DAVIN w/Rflx PCR Qn Negative, HIV Ag/Ab Combo Qual Negative 02/01/25 19:44: Urine Color Yellow, Urine Appearance Clear, Urine pH 6.5, Ur Specific [place] 1.010, Urine Protein Negative, Urine Glucose (UA) Negative, Urine Ketones Negative, Urine Blood Negative, Urine Nitrate Negative, Urine Bilirubin Negative, Urine Urobilinogen 0.2, Ur Leukocyte Esterase Negative, Urine RBC None, Urine WBC None, Ur Squamous Epith Cells Occasional, Urine Bacteria Trace 02/01/25 18:00 02/01/25 18:00 Orders (Tests/Meds): ED MEDICATIONS Generic Name Dose Route Start Last Admin Trade Name Freq PRN Reason Stop Dose Admin Sodium Chloride 10 ml 02/01/25 18:20 02/01/25 18:21 Sodium Chloride 0.9% 10ml Syr (Rad Only) IV 03/03/25 18:19 10 ml NEEDED PRN Administration Maintain IV Site Discontinued Medications Generic Name Dose Route Start Last Admin Trade Name Freq PRN Reason Stop Dose Admin Acetaminophen 1,000 mg 02/01/25 17:49 02/01/25 18:03 Acetaminophen 1,000mg/100ml Vial IV 02/01/25 17:50 1,000 mg ONCE ONE Administration Sodium Chloride 1,000 mls @ 999 mls/hr 02/01/25 17:49 02/01/25 18:03 Sod Chlor 0.9% 1000ml Bag IV 02/01/25 18:49 999 mls/hr .Q1H1M ONE Administration Piperacillin Sod/Tazobactam 50 mls @ 100 mls/hr 02/01/25 18:41 02/01/25 18:46 Sod 3.375 gm/ Sodium Chloride IV 02/01/25 19:10 100 mls/hr ONCE ONE Administration Iopamidol 75 ml 02/01/25 18:20 02/01/25 18:21 Iopamidol-370 (76%);100ml Bottle IV 02/01/25 18:21 75 ml ONCE ONE Administration Ketorolac Tromethamine 15 mg 02/01/25 17:49 02/01/25 18:02 Ketorolac 30mg/Ml Vial IV 02/01/25 17:50 15 mg ONCE ONE Administration Ondansetron HCl 4 mg 02/01/25 17:49 02/01/25 18:02 Ondansetron 4mg/2ml Vial IV 02/01/25 17:50 4 mg ONCE ONE Administration ORDERS Category Date Time Status CT abdomen pelvis w con Stat Cat Scan 02/01/25 17:49 Completed CBC w/Auto Diff [Complete Blood Count Auto Diff] Stat Lab 02/01/25 18:00 Completed CMP [Comprehensive Metabolic Panel] Stat Lab 02/01/25 18:00 Completed CRP [C-Reactive Protein] Stat Lab 02/01/25 18:00 Completed HIV Combo Stat Lab 02/01/25 18:00 Completed Hepatitis C Ab Qual. W/ RFX Stat Lab 02/01/25 18:00 Completed Lactic Acid Stat Lab 02/01/25 17:50 Ordered Lipase Stat Lab 02/01/25 18:00 Completed Magnesium Stat Lab 02/01/25 18:00 Completed Procalcitonin Stat Lab 02/01/25 18:00 Completed UA [Urinalysis and Microscopic] Stat Lab 02/01/25 19:44 Completed UA [Urinalysis and Microscopic] Stat Lab 02/01/25 19:50 Ordered Medical Decision Narrative: In summary patient is a 34-year-old male who presents to the emergency department for evaluation of right-sided abdominal pain. Patient is hemodynamically stable upon arrival, afebrile. Physical exam is remarkable for well-nourished well-developed morbidly obese 34-year-old gentleman who looks uncomfortable but otherwise is in no acute distress. Breath sounds clear equal bilaterally to the bases without adventitious sounds. Patient has tenderness to palpation both in the right upper and lower abdominal quadrants but not particularly focally tender. There is no rebound no guarding no rigidity. Bowel sounds normal active.. Differential diagnosis includes cholecystitis versus cholelithiasis versus appendicitis versus colitis etc. Initial workup will be conducted with hematologic labs CT scan abdomen pelvis urinalysis blood cultures. Initial interventions include crystalloid bolus Tylenol Toradol. Initial workup reviewed by me and his hematologic labs are significant for a white count of 17.8 with a normal H&H absolute neutrophil count of 13.4 CRP is 15.1 lipase is 55 and the remainder of his hematologic labs are nonactionable. My informal interpretation of his CT imaging shows questionable appendiceal thickening and stranding and possible appendicolith prior to radiology read. Please see final read for formal interpretation. Given this I have gone ahead and started him on Zosyn. I have transitioned care to Dr. Valverde at 1900 hrs. prior to radiology read coming back.. <Mark Valverde MD - Last Filed: 02/01/25 20:39> Vital Signs: 02/01/25 17:49 02/01/25 19:30 Temperature 97.6 F Temperature Source Oral Pulse Rate 91 H Pulse Rate [Left] 105 H Respiratory Rate 16 17 Blood Pressure 122/81 Blood Pressure [Right Arm] 133/92 H Blood Pressure Mean 94 Blood Pressure Mean [Right Arm] 105 Blood Pressure Source [Right Arm] Automatic Cuff Blood Pressure Position [Right Arm] Sitting 02 Sat by Pulse Oximetry 100 96 Oxygen Delivery Method Room Air Lab Data Lab Results 02/01/25 18:00: WBC 17.8 H, RBC 6.16, Hgb 17.8, Hct 54.1 H, MCV 87.8, MCH 28.9, MCHC 32.9, RDW 13.6, Plt Count 312, MPV 10.6 H, Neut % (Auto) 75.6, Lymph % (Auto) 14.2, [place] % (Auto) 6.8, Eos % (Auto) 2.5, Baso % (Auto) 0.3, Neut # (Auto) 13.4 H, Lymph # (Auto) 2.5, [place] # (Auto) 1.2 H, Eos # (Auto) 0.4, Baso # (Auto) 0.1, Sodium 136, Potassium 4.3, Chloride 101, Carbon Dioxide 25, Anion Gap 14.3, BUN 24 H, Creatinine 1.20, Estimated Creat Clear 98, Estimated GFR 69, Est GFR ( Amer) 84, Glucose 119 H, Calcium 9.7, Magnesium 2.0, Total Bilirubin 0.8, AST 32, ALT 36, Alkaline Phosphatase 90, C-Reactive Protein 15.1 H, Total Protein 10.4 H D, Albumin 4.6, Globulin 5.8 H, Albumin/Globulin Ratio 0.8 L, Lipase 55, Procalcitonin 0.105, HCV Ab DAVIN w/Rflx PCR Qn Negative, HIV Ag/Ab Combo Qual Negative 02/01/25 19:44: Urine Color Yellow, Urine Appearance Clear, Urine pH 6.5, Ur Specific [place] 1.010, Urine Protein Negative, Urine Glucose (UA) Negative, Urine Ketones Negative, Urine Blood Negative, Urine Nitrate Negative, Urine Bilirubin Negative, Urine Urobilinogen 0.2, Ur Leukocyte Esterase Negative, Urine RBC None, Urine WBC None, Ur Squamous Epith Cells Occasional, Urine Bacteria Trace Orders (Tests/Meds): ED MEDICATIONS Generic Name Dose Route Start Last Admin Trade Name Freq PRN Reason Stop Dose Admin Sodium Chloride 10 ml 02/01/25 18:20 02/01/25 18:21 Sodium Chloride 0.9% 10ml Syr (Rad Only) IV 03/03/25 18:19 10 ml NEEDED PRN Administration Maintain IV Site Discontinued Medications Generic Name Dose Route Start Last Admin Trade Name Freq PRN Reason Stop Dose Admin Acetaminophen 1,000 mg 02/01/25 17:49 02/01/25 18:03 Acetaminophen 1,000mg/100ml Vial IV 02/01/25 17:50 1,000 mg ONCE ONE Administration Sodium Chloride 1,000 mls @ 999 mls/hr 02/01/25 17:49 02/01/25 18:03 Sod Chlor 0.9% 1000ml Bag IV 02/01/25 18:49 999 mls/hr .Q1H1M ONE Administration Piperacillin Sod/Tazobactam 50 mls @ 100 mls/hr 02/01/25 18:41 02/01/25 18:46 Sod 3.375 gm/ Sodium Chloride IV 02/01/25 19:10 100 mls/hr ONCE ONE Administration Iopamidol 75 ml 02/01/25 18:20 02/01/25 18:21 Iopamidol-370 (76%);100ml Bottle IV 02/01/25 18:21 75 ml ONCE ONE Administration Ketorolac Tromethamine 15 mg 02/01/25 17:49 02/01/25 18:02 Ketorolac 30mg/Ml Vial IV 02/01/25 17:50 15 mg ONCE ONE Administration Ondansetron HCl 4 mg 02/01/25 17:49 02/01/25 18:02 Ondansetron 4mg/2ml Vial IV 02/01/25 17:50 4 mg ONCE ONE Administration ORDERS Category Date Time Status CT abdomen pelvis w con Stat Cat Scan 02/01/25 17:49 Completed CBC w/Auto Diff [Complete Blood Count Auto Diff] Stat Lab 02/01/25 18:00 Completed CMP [Comprehensive Metabolic Panel] Stat Lab 02/01/25 18:00 Completed CRP [C-Reactive Protein] Stat Lab 02/01/25 18:00 Completed HIV Combo Stat Lab 02/01/25 18:00 Completed Hepatitis C Ab Qual. W/ RFX Stat Lab 02/01/25 18:00 Completed Lactic Acid Stat Lab 02/01/25 17:50 Ordered Lipase Stat Lab 02/01/25 18:00 Completed Magnesium Stat Lab 02/01/25 18:00 Completed Procalcitonin Stat Lab 02/01/25 18:00 Completed UA [Urinalysis and Microscopic] Stat Lab 02/01/25 19:44 Completed UA [Urinalysis and Microscopic] Stat Lab 02/01/25 19:50 Ordered Medical Decision Narrative: In summary patient is a 34-year-old male who presents to the emergency department for evaluation of right-sided abdominal pain. Patient is hemodynamically stable upon arrival, afebrile. Physical exam is remarkable for well-nourished well-developed morbidly obese 34-year-old gentleman who looks uncomfortable but otherwise is in no acute distress. Breath sounds clear equal bilaterally to the bases without adventitious sounds. Patient has tenderness to palpation both in the right upper and lower abdominal quadrants but not particularly focally tender. There is no rebound no guarding no rigidity. Bowel sounds normal active.. Differential diagnosis includes cholecystitis versus cholelithiasis versus appendicitis versus colitis etc. Initial workup will be conducted with hematologic labs CT scan abdomen pelvis urinalysis blood cultures. Initial interventions include crystalloid bolus Tylenol Toradol. Initial workup reviewed by me and his hematologic labs are significant for a white count of 17.8 with a normal H&H absolute neutrophil count of 13.4 CRP is 15.1 lipase is 55 and the remainder of his hematologic labs are nonactionable. My informal interpretation of his CT imaging shows questionable appendiceal thickening and stranding and possible appendicolith prior to radiology read. Please see final read for formal interpretation. Given this I have gone ahead and started him on Zosyn. I have transitioned care to Dr. Valverde at 1900 hrs. prior to radiology read coming back.. Mark Valverde: Upon assumption of care patient is hemodynamically stable. CT imaging formal read consistent with gastroenteritis. Patient does have diarrhea consistent with this. Appendix is visualized and normal. Upon repeat evaluation patient had large resolution of his pain. Patient was not tender to superficial or deep palpation of the right lower quadrant. Given this patient is appropriate for discharge at this time was given multiple return precautions and verbalized understanding. Patient be discharged with a course of Zofran. Critical Care <OLIVIER Luna - Last Filed: 02/01/25 18:48> Critical Care Time Critical Care Time: Yes Attestation: On 02/01/25, the high probability of a clinically significant, sudden or life threatening deterioration of the following system(s) required my full and direct attention, intervention and personal management. The time I documented below is in addition to time spent performing reported procedures but includes the following listed in this critical care notation. Total Time Total Critical Care Time: 30
--- OUTSIDE RECORDS SUMMARY | 2025-02-01 17:45 | XMS_ITS | Clinical Summary ---
Author Organization [facility] ([place], [place], [place], [place]) Address [address] [place] [address] Care Team Providers Care Research Consultant Name Role Phone Unavailable Primary Care Provider Unavailabl e Allergies No known active allergies Medications No known medications Social History Tobacco Use Types Packs/Day Years Used Date Smoking Tobacco: Never Smokeless Tobacco: Never Alcohol Use Standard Drinks/Week Comments Not Currently 0 (1 standard drink = 0.6 oz pur e alcohol) Food Insecurity Answer Date Recorded Food run out past 12 months Not on file 07/08 Food did not last past 12 months Not on file 07/26/2023 Employment Answer Date Recorded Help finding and keeping a job Not on file 0 07/26/2023 Family and Community Support Answer Derrick e Recorded Help with Day to Day Activities Not on file 07/26/2023 Feeling Lonely or Isolated Not on file 07/26 Educational Attainment Answer Date Cory rded Speak language other than [place] at home Not on file 07/26/2023 Want help with school or training Not on file 07/26/2023 Substance Use Answer Date Recorded Used prescription meds for non-medical reasons N ot on file 07/26/2023 Used illegal drugs past 12 months Not on file 07/26/2023 Sex and Gender Information Value Date Recorded Sex Assigned at Not on file Legal Sex Male 6:47 PM CDT Gender Identity Not on file Sexual Orientation Not on file Last Filed Vital Signs Vital Sign Reading Time Taken Comments Blood Pressure 163/88 06/05/2022 9:11 PM EST Pulse 80 06/05/2022 9:11 PM EST Temperature 37.9 C (100.3 F) 06/05/2022 9:11 PM EST Respiratory Rate 18 06/05/2022 9:11 PM EST Oxygen Saturation - - Inhaled Oxygen Concentration - - Weight 181.4 kg (400 lb) 06/05/2022 9:11 PM EST Height 185.4 cm (6' 1 ) 06/05/2022 9:11 PM EST Body Mass Index 52.77 06/05/2022 9:11 PM EST Plan of Treatment Health Maintenance Due Date Last Done Comments Depression Screening (12+) 2002 HIV Screening 2005 Hepatitis C Screening 2008 DTAP/TDAP/TD VACCINES (1 - Tdap) 2009 Lipid Panel 2010 Tobacco Cessation Counseling and Screening (12+) 06/05/2023 06/05/2022 COVID-19 VACCINE ( - 2023-2 5 season) 2024 Influenza Vaccine (#1) 2025 Pneumococcal Vaccine: 0-49 Years Aged Out No longer eligible based on patient's age to complete this topic Insurance BLUE CROSS/BLUE SHIELD
--- OUTSIDE RECORDS SUMMARY | 2025-02-01 17:45 | XMS_ITS | Clinical Summary ---
[facility] Address [address] [place] [address] Care Team Providers Care Foot Piece Assembler Name Role Phone Provider, No Known Primary Care Provider Unavail able Allergies Active Allergy Reactions Criticality Noted Date Comments Hydrocodone-Acetamin ophen Unknown (See Comments) Low 03/15/2018 Family hx of reaction Medications ALBUTEROL IN Inhale As Needed. Active Active Problems No known active problems Immunizations Immunization Administration Dates Next Due Hep B, Adolescent or Pediatric 01/28/2001,2000,09/19/2000 MMR 09/19/2000 Td (TDVAX) 02/06/2005 Family History Medical History Relation Name Comments No Known Problems Father No Known Problems Mother Relation Name Status Comments Father Alive Mother Alive Social History Tobacco Use Types Packs/Day Years Used Date Smoking Tobacco: Never Abuse Screen Answer Date Recorded Unsafe at Home or Work/School Not on file Feels Threatened by Someone? Not on file 03/2023 Does Anyone Keep You from Co ntacting Others or Doint Things Outside the Home? Not on file 04/15/2023 Physical Sign of Abuse Present Not on file 1 Housing Stability Answer Date Recorded Current Living Arrangements Not on file 03/2023 Potentially Unsafe Housing Conditions Not on adrian e 04/15/2023 Family and Community Support Answer Derrick e Recorded Help with Day-to-Day Activities Not on file 04/15/2023 Lonely or Isolated Not on file 04/15/2023 Employment Answer Date Recorded Do you want help finding or keeping work or a catia b? Not on file 04/15/2023 Disabilities Answer Date Recorded Concentrating, Remembering, or Making Decisions Difficulty Not on file 04/15/2023 Doing Errands Independently Difficulty Not on fi le 04/15/2023 Education Answer Date Recorded Help with school or training? Not on file Preferred Language Not on file 04/15/2023 Sex and Gender Information Value Date Recorded Sex Assigned at Not on file Legal Sex Male 8:46 AM EST Gender Identity Not on file Sexual Orientation Not on file Last Filed Vital Signs Vital Sign Reading Time Taken Comments Blood Pressure 132/90 08/13/2019 10:36 AM EST Pulse 81 08/13/2019 10:36 AM EST Temperature 36.9 C (98.5 F) 08/13/2019 10:36 AM EST Respiratory Rate 16 08/13/2019 10:36 AM EST Oxygen Saturation 98% 08/13/2019 10:36 AM EST Inhaled Oxygen Concentration - - Weight 174 kg (384 lb 4.8 oz) 08/13/2019 10:36 A M EST Height 185.4 cm (6' 1 ) 08/13/2019 10:36 AM EST Body Mass Index 50.7 08/13/2019 10:36 AM EST Plan of Treatment Health Maintenance Due Date Last Done Comments TDAP/TD VACCINES (2 - Tdap) 02/06/2015 02/06/2005 ANNUAL PHYSICAL 06/25/2017 HEPATITIS C SCREENING 06/25/2017 COVID-19 Vaccine (2023-2 5 season) 2024 INFLUENZA VACCINE 04/07/2025 Pneumococcal Vaccine 0-49 Aged Out No longer eligible based on patient's age to complete this topic [place] [address] [place] [address] PPO Care Teams Foot Piece Assembler Relationship Specialty Start Date End Date Provider, [place] [address] PCP - General 07/05/16
--- OUTSIDE RECORDS SUMMARY | 2025-02-01 17:45 | XMS_ITS | Data Portability ---
Author Organization [facility] Address [address] [facility] [address] [place] [address] Care Team Providers Care Motorboat Operator Name Role Phone SB MASCORRO Orthopedic Surgeon [phone] JAGJIT JONES Camp Housekeeper Assessment Encounter Date Assessment Date Assessment LastModified by Organization Details LastModified Time 07/30/2023 07/30/2023 Patient is doing well in regards to his left hand and will continue with therapy working on progressive strengthening and conditioning. Now with further exacerbation and progression of his right hand carpal tunnel symptoms including worsening two-point discrimination on testing today. He has thus elected to move forward with more definitive surgical intervention for his ongoing right hand carpal tunnel symptoms. He will continue modified work duty. Patient will be scheduled for open right carpal tunnel release at his convenience pending Worker's Compensation approval. Risk and benefits of the surgical procedure were explained to the patient in clinic today, including but not limited to incomplete symptom relief, recurrence, need for additional procedures, stiffness, damage to surrounding tissues/structure s/nerves/vessels, wound complications, and infection. Patient expressed understanding and all questions were answered to the patient's satisfaction. [email or web address] Not available 07/30/2023 12:53:44 09/17/2023 09/17/2023 Patient will begin OT/HEP and was instructed on initiation of scar massage. He may gradually resume activity as tolerated with the hand but will continue on-going work restrictions. He will return to office to see Dr. Mascorro in 4 weeks. RTO as scheduled or sooner if needed, advised to call office with any questions/concern [email or web address] Not available 09/19/2023 10:15:41 10/15/2023 10/15/2023 Patient can continue activity with the hand/arm as tolerated at this time. Continue scar massage. I also provided him with a prednisone dosepak to treat his residual inflammatory symptoms. He will remain on restrictions until 11/04/2023 to focus on his therapeutic recovery. Starting on 11/04/2023 he can return to work without restrictions to begin work hardening and conditioning followed by reentry process. Follow up in 6 weeks for repeat assessment and to ensure no setback with return to work. [email or web address] Not available 10/15/2023 10:50:42 11/26/2023 11/26/2023 Patient can continue activity with the hand and can continue working without restrictions. He has now reached MMI. Patient will follow up in clinic on an as-needed basis should additional questions or concerns arise. [email or web address] Not available 11/26/2023 10:57:12 Plan of Treatment Reminders Order Date Submit Date Provider Last Modified By Organization Details Last Modified Time Details Appointments None recorded. Lab None recorded. Referral None recorded. Procedures None recorded. Surgeries None recorded. Imaging None recorded. Medication Orders prednisone 10 mg tablets in a dose pack 2023 024 [facility], [address], [place], [address], 10:51:16 Patient TargetsNo targets recorded. Patient InstructionsNo instructions recorded. Reason for Referral None Reported. Problems No Known Problems Procedures Surgical History Date Name Laterality Status Provider Name and Address Organization Details Recorded Time 4 Op Note completed SB MASCORRO MD [address] [place] [address], [id number], [facility] 09/02/2023 10:48:00 4 Carpal tunnel surgery completed Arina Chavez [facility] 09/17/2023 10:55:51 3 Op Note completed SB MASCORRO MD [address] [place] [address] [place], [address], [facility] 06/17/2023 08:30:02 Imaging Results None recorded. Procedure Notes None recorded. Medical Equipment None Reported. Allergies Allergen ID Allergen Name Allergen Category Reaction Reaction Severity Criticality Documentation Date Start Date Code Code System Note Provider Name and Address Organization Details Recorded Time 270660 acetamino phen / hydrocodo ne medicatio n fever mild low 05/21/2023 31646 2 RxNorm Maurizio Mallory [facility] 08:31:28 Medications Name Sig Start Date Stop Date Status Note LastModified by Organization Details LastModified Time tramadol 50 mg tablet TAKE 1 TABL PO Q 6 HRS PRN FOR SEVERE POST SURGICAL PAIN 10/14 completed Not Available Not Available Not Available prednisone 10 mg tablets in a dose pack Take 1 dose pk by oral route as directed. 2023 active Not Available Not Available Not Avai lable meloxicam 7.5 mg tablet TAKE 1 TABLE PO QD WITH FOOD REGARDLES S OF PAIN LEVEL FOR 1 WEEK. THEN TAKE 1 TABLET PO QD ONLY PRN FOR PAIN RELIEF THEREAFTE R 10/14 completed Not Available Not Available Not Available Neurontin 100 mg capsule TAKE 1 CAPSULE PO QHS FOR 1 WEEK 10/14 completed Not Available Not Available Not Available phentermine active Not Available Not A vailable Not Available Wellbutrin SR active Not Available Not Available Not Available Topamax active Not Available Not Avail able Not Available Lexapro 07/30 completed Not Available Not Available Not Available Vitals Date Recorded Body height Body mass index (BMI) Body weight Provider Name and Address Organization Details Last Updated DateTime 07/30/2023 185.42 cm 58.1 kg/m2 .64 g Maurizio Mallory [facility] 07/30/2023 10:11:26 Date Recorded Body height Body mass index (BMI) Body weight Provider Name and Address Organization Details Last Updated DateTime 09/17/2023 185.42 cm 58.1 kg/m2 .64 g Arina Chavez [facility] 09/17/2023 10:55:26 Date Recorded Body height Body mass index (BMI) Body weight Provider Name and Address Organization Details Last Updated DateTime 10/15/2023 185.42 cm 58.1 kg/m2 .64 g Maurizio Mallory [facility] 10/15/2023 10:12:59 Social History Question Answer Notes LastModified by Organizat ion Details LastModified Time Tobacco Smoking Status [facility] 10:55:41 What Was The Date Of Your Most Recent Tobacco Screening? 09/17/2023 [email or web address] Information not available 09/17/2023 Has Tobacco Cessation Counseling Been Provided? No [email or web address] Information not available 09/17/2023 Sex: Male Functional Status Question Answer Note LastModified by Organizat ion Details LastModified Time Do you use any illicit or recreational drugs? No [email or web address] Information not available 09/17/2023 Do you or have you ever used any other forms of tobacco or nicotine? No [email or web address] Information not available 09/17/2023 What is your level of alcohol consumption? None [email or web address] Information not available 09/17/2023 Mental Status None recorded. Family History Nothing Reported. Medical History No medical history recorded. Past Encounters Encounter ID Performer Location Encounter Start Date Encounter Closed Date Diagnosis/Indication Diagnosis SNOMED-CT Code Diagnosis ICD10 Code Diagnosis Note [id number] SB MASCORRO MD [facility] [address] [place] [address] 05/21/2023 08:13:28 05/21/2023 09:10:12 Carpal tunnel syndrome 63856373 G56.01 G56.02 EMG/NCV () demonstrat ed moderate to severe bilateral carpal tunnel syndrome. No evidence of other focal nerve entrapment or radiculopa thy. [id number] SB MASCORRO MD SURGERY SCHEDULE [address] [place] [address] 06/17/2023 06:14:58 06/17/2023 06:15:46 [id number] SILVANA MORENO PA-C [facility] [address] [place] [address] 07/02/2023 13:46:58 07/02/2023 14:21:47 Carpal tunnel syndrome 25079474 G56.01 G56.02 EMG/NCV () demonstrat ed moderate to severe bilateral carpal tunnel syndrome. No evidence of other focal nerve entrapment or radiculopa thy. s/p Left open carpal tunnel release (DOS: 06/17/23) Postoperative care [id number] Z48.89 s/p Left open carpal tunnel release (DOS: 06/17/23) [id number] SB MASCORRO MD [facility] [address] [address] 07/30/2023 09:57:21 07/30/2023 11:05:34 Postoperative care [id number] Z48.89 6 weeks s/p Left open carpal tunnel release (DOS: 06/17/23) Carpal tanisha wes syndrome [id number] G56.01 G56.02 EMG/NCV ( 3) demonstrat ed moderate to severe bilateral carpal tunnel syndrome. No evidence of other focal nerve entrapment or radiculopa thy. Previously s/p Left open carpal tunnel release (DOS: 06/17/23) [id number] SB MASCORRO MD SURGERY SCHEDULE [address] [place] [address] 09/02/2023 07:07:17 09/02/2023 07:07:36 [id number] SILVANA MORENO PA-C [facility] [address] [address] 09/17/2023 10:53:45 09/17/2023 11:16:56 Postoperative care [id number] Z48.89 s/p Right open carpal tunnel release (DOS: 09/02/23) Previously s/p Left open carpal tunnel release (DOS: 06/17/23) Carpal tanisha wes syndrome [id number] G56.01 G56.02 EMG/NCV ( 3) demonstrat ed moderate to severe bilateral carpal tunnel syndrome. No evidence of other focal nerve entrapment or radiculopa thy. s/p Right open carpal tunnel release (DOS: 09/02/23) Previously s/p Left open carpal tunnel release (DOS: 06/17/23) [id number] SB MASCORRO MD [facility] [address] [address] 10/15/2023 10:07:51 10/15/2023 10:52:38 Postoperative care [id number] Z48.89 6 weeks s/p Right open carpal tunnel release (DOS: 09/02/23) Previously s/p Left open carpal tunnel release (DOS: 06/17/23) Carpal tanisha wes syndrome [id number] G56.01 G56.02 EMG/NCV ( 3) demonstrat ed moderate to severe bilateral carpal tunnel syndrome. No evidence of other focal nerve entrapment or radiculopa thy. s/p Right open carpal tunnel release (DOS: 09/02/23) Previously s/p Left open carpal tunnel release (DOS: 06/17/23) [id number] SB MASCORRO MD [facility] [address] [place] [address] 11/26/2023 10:33:13 11/26/2023 11:22:52 Postoperative care [id number] Z48.89 12 weeks s/p Right open carpal tunnel release (DOS: 09/02/23) Previously s/p Left open carpal tunnel release (DOS: 06/17/23) Carpal tanisha wes syndrome [id number] G56.01 G56.02 EMG/NCV ( 3) demonstrat ed moderate to severe bilateral carpal tunnel syndrome. No evidence of other focal nerve entrapment or radiculopa thy. s/p Right open carpal tunnel release (DOS: 09/02/23) Previously s/p Left open carpal tunnel release (DOS: 06/17/23) Health Concerns Section Related Observation LastModified by Organization Detai ls LastModified Time None Recorded Concern Status LastModified by Organization Details LastModified Time None Recorded Advance Directives Directive None Recorded Payers Insurance Date Sequence Insurance Name Policy Number Policy Anderson Covered Member ID Anderson Member ID Guarantor Name 07/02/2023 MITALI Ty
--- OUTSIDE RECORDS SUMMARY | 2025-02-01 17:45 | XMS_ITS | Referral Summary ---
Author Organization [employer] ([place], [place], [place], [place]) Address [address] [place] [address] Care Team Providers Care Technical Project Coordinator Name Role Phone Unavailable Primary Care Provider [...] Date Cory rded Speak language other than Kosovan at home Not on file 07/26/2023 Want [...] 06/05/2022 9:11 PM EST Plan of Treatment Not on file Insurance BLUE CROSS/BLUE SHIELD
--- OUTSIDE RECORDS SUMMARY | 2025-02-01 17:45 | XMS_ITS | Clinical Summary ---
Author Organization [facility] Address [address] [place] [address] Phone [email or web address] Care Team Providers Care Wire Drawing Machine Tender Name Role Phone Rosalio Joyce MD Primary Care Provider [phone] Allergies Active Allergy Reactions Criticality Noted Date Comments Hydrocodone-Acetamin ophen Other (see comments) Low 03/15/2018 Family hx of reaction Medications buPROPion XL (WELLBUTRIN XL) 300 MG 24 hr tablet Take 300 mg by mouth 1 (one) time each day. 4 Active cetirizine (ZyrTEC) 10 MG chewable tablet Chew 10 mg 1 (one) time each day. Active Zepbound 2.5 MG/0.5ML solution auto-injector INJECT 2.5 MG UNDER THE SKIN ONECE WEEKLY FOR 4 WEEKS 4 Active Tirzepatide-We ight Management (Zepbound, tirzepatide, 5mg/0.5mL Single-Dose Pen SQ) 5 MG/0.5ML solution auto-injector INJECT 5 MG SUBCUTANEOUSLY ONCE A WEEK FOR 4 WEEKS 5 Active Active Problems Problem Noted Date Diagnosed Date Return to work evaluation 06/13/2022 Social History Tobacco Use Types Packs/Day Years Used Date Smoking Tobacco: Never Smokeless Tobacco: Never Tobacco Cessation:Counseling Given: Not Answered Intimate Partner Violence Answer Date R ecorded Insults You Not on file 10/19/2020 Threatens You Not on file 10/19/2020 Screams at You Not on file 10/19/2020 Physically Hurt Not on file 10/19/2020 Intimate Partner Violence Score Not on file 10/19/2020 Depression Answer Date Recorded PHQ Total Score 0 06/13/2022 Stress Answer Date Recorded Stress in your Life Not on file 05/11/2024 Dealing with Stress 3 05/11/2024 Sex and Gender Information Value Date Recorded Sex Assigned at Not on file Legal Sex Male 12:16 PM CDT Gender Identity Male 12/02/2024 9:45 PM CDT Sexual Orientation Not on file Last Filed Vital Signs Vital Sign Reading Time Taken Comments Blood Pressure 136/88 10/20/2024 4:12 PM EDT Pulse 103 10/20/2024 4:12 PM EDT Temperature 36.7 C (98 F) 10/20/2024 4:12 PM EDT Respiratory Rate 18 10/20/2024 4:12 PM EDT Oxygen Saturation 98% 10/20/2024 4:12 PM EDT Inhaled Oxygen Concentration - - Weight 170 kg (374 lb) 10/20/2024 4:12 PM EDT Height 182.9 cm (6') 05/27/2023 5:26 PM EST Body Mass Index 50.72 05/27/2023 5:26 PM EST Plan of Treatment Health Maintenance Due Date Last Done Comments Dental Cleaning/Exam 1990 HIV Screening 1990 Hepatitis C Screening 1990 Tetanus Diphtheria and Pertussis Immunization (2 - Tdap) 02/07/2005 02/06/2005 Annual Preventive Exam 2008 Hep B Infection Screening - Triple Screen 2008 Covid-19 Immunization ( season) 2024 Influenza Immunization (#1) 2025 Hepatitis B Immunization Completed 001, 10/24/2000, 09/19/2000 HIB Immunization Aged Out No longer e ligible based on patient's age to complete this topic HPV Immunization Aged Out No longer e ligible based on patient's age to complete this topic Hepatitis A Immunization Aged Out No longer eligible based on patient's age to complete this topic Pneumococcal: Ped (0 to 5 Yrs) and At-Risk Member (6 to 64 Yrs) Aged Out No longer eligible b ased on patient's age to complete this topic Polio Immunization Aged Out No longer eligible based on patient's age to complete this topic Varicella Immunization Aged Out No lo nger eligible based on patient's age to complete this topic Insurance [employer]CIAL Care Teams Wire Drawing Machine Tender Relationship Specialty Start Date End Date Rosalio Joyce MD [address] [place] [address] PCP - General Family Medicine 03/26/23
[2025-02-01 17:49] VITALS: BP 133/92; PULSE 105; RESP 16; TEMP 36.4; O2SAT 100; BMI 48.8
--- NOTE | 2025-02-01 17:49 | CT_ITS ---
PROCEDURE INFORMATION: Exam: CT Abdomen And Pelvis With Contrast Exam date and time: 02/01/2025 6:21 PM Age: 34 years old Clinical indication: Abdominal pain; Localized; Right; Additional info: Right-sided abdominal pain TECHNIQUE: Imaging protocol: Computed tomography of the abdomen and pelvis with contrast. Radiation optimization: All CT scans at this facility use at least one of these dose optimization techniques: automated exposure control; mA and/or kV adjustment per patient size (includes targeted exams where dose is matched to clinical indication); or iterative reconstruction. Contrast material: ISOVUE; Contrast volume: 75 ml; Contrast route: IV; COMPARISON: CT ABDOMEN PELVIS W CON 07/15/2024 5:14 PM FINDINGS: Liver: Normal. No mass. Gallbladder and biliary ducts: Normal. No calcified stones. No ductal dilation. Pancreas: Normal. No ductal dilation. Spleen: Normal. No splenomegaly. Adrenal glands: Normal. No mass. Kidneys and ureters: Normal. No hydronephrosis. Stomach and bowel: Air-fluid level in the stomach and proximal small bowel loops reflecting gastroenteritis. No colitis. Fluid in the colon reflecting diarrhea. Appendix: No evidence of appendicitis. Intraperitoneal space: Unremarkable. No free air. No significant fluid collection. Vasculature: Unremarkable. No abdominal aortic aneurysm. Lymph nodes: Unremarkable. No enlarged lymph nodes. Urinary bladder: Unremarkable as visualized. Reproductive: Unremarkable as visualized. Bones/joints: Unremarkable. No acute fracture. Soft tissues: Unremarkable. IMPRESSION: Air-fluid level in the stomach and proximal small bowel loops reflecting gastroenteritis. No colitis. Fluid in the colon reflecting diarrhea.
[2025-02-01] MEDS: KETOROLAC 30MG/ML VIAL 15 MG IV (18:02)
[2025-02-01] MEDS: ONDANSETRON 4MG/2ML VIAL 4 MG IV ×2 (18:02→20:45)
[2025-02-01] MEDS: ACETAMINOPHEN 1,000MG/100ML VIAL 1000 MG IV (18:03)
[2025-02-01] MEDS: 0.9 % SODIUM CHLORIDE 1000ML 1,000 ML 999 ML IV (18:03)
[2025-02-01 18:05] LABS: Hematocrit 54.1 % (42.0-52.0); Hemoglobin 17.8 g/dL (14.1-18.0); Immature Granulocytes % 0.6 %; Mean Corpuscular HGB Conc 32.9 g/dL (31.8-35.4); Mean Corpuscular Hemoglobin 28.9 pg (27.0-31.2); Mean Corpuscular Volume 87.8 fl (80-94); Nucleated Red Blood Cells % 0 %; Platelet Count 312 K/mm3 (142-424); Red Blood Count 6.16 M/mm3 (4.60-6.20); Red Cell Distribution Width-SD 43.3 fL; White Blood Count 17.8 K/mm3 (4.8-10.8)
[2025-02-01 18:09] LABS: Albumin Level 4.6 g/dl (3.5-5.0); Chloride 101 mmol/L (98-107); Potassium 4.3 mmoL/L (3.5-5.1); Sodium 136 mmol/L (136-145)
[2025-02-01 18:11] LABS: Blood Urea Nitrogen 24 mg/dl (9-20)
[2025-02-01 18:12] LABS: Alanine Aminotransferase 36 U/L (12-78); Albumin/Globulin Ratio 0.8 (1.1-1.8); Alkaline Phosphatase 90 U/L (38-126); Anion Gap 14.3 mEq/L (5-15); Aspartate Amino Transferase 32 U/L (17-59); Bilirubin,Total 0.8 mg/dl (0.2-1.3); Calcium 9.7 mg/dl (8.4-10.2); Carbon Dioxide 25 mmol/L (22.0-30.0); Creatinine Clearance Estimated 98 mL/min (50-200); Creatinine,Serum 1.20 mg/dl (0.66-1.25); Estimated Glomerular Filt Rate 69 ml/min (>60); GFR (African American) 84 ML/MIN (>60); Globulin 5.8 g/dL (1.3-3.2); Glucose 119 mg/dl (74-100); Lipase 55 U/L (23-300); Magnesium 2.0 mg/dl (1.6-2.3); Total Protein,Serum 10.4 g/dl (6.3-8.2)
[2025-02-01 18:18] LABS: C-Reactive Protein 15.1 mg/L (0-4)
[2025-02-01] MEDS: SODIUM CHLORIDE 0.9% 10ML SYR (RAD ONLY) 10 ML IV (18:21)
[2025-02-01] MEDS: IOPAMIDOL-370 (76%);100ML BOTTLE 75 ML IV (18:21)
[2025-02-01 18:45] LABS: Procalcitonin 0.105 ng/mL (0.0-2.0)
[2025-02-01] MEDS: PIPERCILLIN/TAZO 3.375 GM in 0.9 % SODIUM CHLORIDE 50 ML IV (18:46)
[2025-02-01 19:25] LABS: Hepatitis C Ab Qual. W/ RFX NEGATIVE (Negative)
[2025-02-01 19:30] VITALS: BP 122/81; PULSE 91; RESP 17; O2SAT 96
[2025-02-01 19:49] LABS: Microscopic, Urine URINE MICROSCOPIC (MICROSCOPIC)
[2025-02-01 20:00] VITALS: BP 124/72; PULSE 79; RESP 16; O2SAT 98
[2025-02-01 20:13] LABS: Bilirubin,Urine Negative (Negative); Color,Urine YELLOW (Yellow); Glucose,Urine (UA) Negative (Negative); Ketones,Urine Negative (Negative); Leukocyte Esterase,Urine Negative (Negative); PH,Urine 6.5 (5.0-8.5); Protein,Urine Negative (Negative); Specific Gravity, Urine 1.010 (1.005-1.030); Urobilinogen,Urine 0.2 EU/dl (0.2)
[2025-02-01 20:23] LABS: Bacteria,Urine Trace /lpf; Squamous Epithelial Cell,Urine Occasional #/hpf (0-5)
[2025-02-01 20:30] VITALS: BP 121/81; PULSE 80; RESP 17; O2SAT 96
[2025-02-01 20:40] VITALS: BP 121/81; PULSE 80; RESP 17; TEMP 36.6; O2SAT 96
== END 2025-02-01 20:54 | disposition home or self-care (01) ==
PROVIDERS: Physician Assistant; Emergency Provider Emergency Medicine; PCP Family Medicine
DX: R10.9 Unspecified abdominal pain (principal); K52.9 Noninfective gastroenteritis and colitis, unspecified
CPT/HCPCS: 74177; 80053; 81001; 83690; 83735; 84145; 85025; 86140; 86803; 87389; 96361; 96365; 96375; 96376; 99291; J0131; J1885; J2405; J2543; J7030; Q9967

== ENCOUNTER 2025-02-12 07:42 | Outpatient (CLI) | payer BC, SELFPAY ==
--- OUTSIDE RECORDS SUMMARY | 2025-02-12 07:44 | XMS_ITS | Referral Summary ---
Author Organization [employer] ([place], [place], [place], [place]) Address [address] [place] [address] Care Team Providers Care Family Program Specialist Name Role Phone Unavailable Primary Care Provider [...] Date Cory rded Speak language other than Kenyan at home Not on file 07/26/2023 Want [...]
--- OUTSIDE RECORDS SUMMARY | 2025-02-12 07:44 | XMS_ITS | Clinical Summary ---
Author Organization [facility] ([place], [place], [place], [place]) Address [address] [place] [address] Care Team Providers Care Office Support Name Role Phone Unavailable Primary Care Provider [...] Date Cory rded Speak language other than Argentine at home Not on file 07/26/2023 Want [...]
--- OUTSIDE RECORDS SUMMARY | 2025-02-12 07:44 | XMS_ITS | Clinical Summary ---
[facility] Address [address] [place] [address] Care Team Providers Care Bell Cleaner Name Role Phone Provider, No Known Primary [...] patient's age to complete this topic Insurance [place] [address] PPO Care Teams Bell Cleaner Relationship Specialty Start Date End Date Provider, [place] [address] PCP - General 07/05/16
--- OUTSIDE RECORDS SUMMARY | 2025-02-12 07:44 | XMS_ITS | Clinical Summary ---
Author Organization [facility] Address [address] [place] [address] Phone [email or web address] Care Team Providers Care Insurance Follow Up Rep Name Role Phone Rosalio Joyce MD Primary Care Provider [phone] Allergies Active Allergy Reactions Criticality Noted Date [...] Pertussis Immunization (2 - Tdap) 02/07/2005 02/06/2005 HPV Immunization (1 - Male 3-dose series) 2005 Annual Preventive Exam 2008 Hep B Infection [...] this topic Insurance [employer]CIAL Care Teams Insurance Follow Up Rep Relationship Specialty Start Date End Date Rosalio Joyce MD [address] [place] [address] PCP - General Family Medicine 03/26/23
--- NOTE | 2025-02-12 08:00 | FL_ITS ---
FINAL REPORT CLINICAL HISTORY: hx of SBO/N/V/D/abd pain Fluoro Time: 1.07 335.75 mGy FINDINGS: UPPER GI SERIES. UPPER GI WITH SMALL BOWEL FOLLOW-THROUGH HISTORY: Epigastric pain. History of bowel obstruction. PROCEDURE: The patient ingested barium. Effervescent crystals were also administered. Spot and overhead films were obtained. 25 total images were performed. Additional barium was administered for a small bowel follow-through. FINDINGS: UGI: The esophagus is normal. There is no hiatal hernia. There is no gastroesophageal reflux demonstrated. Peristalsis is normal. The rugal fold pattern of the stomach is normal. The duodenal bulb is normal. SBFT: The field attendant film is normal. There is no evidence of obstruction. The mucosal fold pattern is normal. The terminal ileum is normal. Fluoroscopy exposure time: 1 minute 7 seconds. Radiation exposure in reference to air kerma: 335 mGy IMPRESSION: Normal UGI and small bowel follow-through. Images reviewed, interpreted, and dictated by Dr. Keys. Transcribed by Wilton Harley PA-C. Reviewed, Interpreted and Dictated by Dank Quintero MD Transcribed by OLIVIER Moreno Authenticated and . [facility]
[2025-02-12] MEDS: BARIUM SULFATE (E-Z-HD 340GM);135ML BOTTLE 135 ML PO (08:51)
[2025-02-12] MEDS: E-Z-GASII EFFERVESCENT GRANULES;1PK 1 EACH PO (08:51)
[2025-02-12] MEDS: BARIUM SULFATE(E-Z-AC);750ML BOTTLE 750 ML PO (08:52)
== END 2025-02-12 23:59 | disposition home or self-care (01) ==
LOC: RAD 07:42
PROVIDERS: PCP Family Medicine; Visit Provider Nurse Practitioner Family
DX: R11.2 Nausea with vomiting, unspecified (principal); R10.9 Unspecified abdominal pain; Z87.19 Personal history of other diseases of the digestive system
CPT/HCPCS: 74246; 74248

== ENCOUNTER 2025-04-26 10:31 | Day surgery (SDC) | payer BC, SELFPAY ==
--- NOTE | 2025-04-25 12:21 | EXP.HP ---
History of Present Illness *Admission Date: 04/26/25 *History of present illness: Mr. Ty is a 35-year-old gentleman who is here for diagnostic colonoscopy. The patient has had intermittent episodes of nausea, vomiting, diarrhea and generalized abdominal pain. In July, he had a episode and had a CAT scan that showed what appeared to be gastroenteritis and this resolved. In October, he had another episode and had an x-ray that showed possible early small bowel obstruction. His symptoms resolved. He had another episode in January 2025 and went to the ED. His CAT scan showed air-fluid levels suggesting another PSBO. The patient does have a history of bleeding and prolapsing) hemorrhoids. His maternal grandmother had colon cancer in his 70s. He did have abdominal hernia repair in 2009 but no other abdominal surgeries. He has never had a colonoscopy. The examination is deemed medically necessary for diagnostic colonoscopy. The patient has been seen, interviewed and examined prior to the procedure by both myself and the anesthesia provider. [facility] Disclaimer: The information contained in this section may have been updated after the patient was seen, as this information can be updated by other users. Medical History Depression History of small bowel obstruction Elevated blood pressure reading Surgical History History of carpal tunnel release History of dental surgery H/O hernia repair Family History Father Hypertension Grandmother Coronary artery disease Cancer Social History Smoking Status: Never smoker second hand exposure: No alcohol intake: never substance use type: denies use current occupational status: employed Travel in the last 8 weeks?: None household members: children housing: house marital status: Have you lived/traveled outside [place] in past 30 days?: No Contact w/someone who lives/traveled outside US past 30 days?: No Exposure to someone with infectious disease in past 14 days?: No Do you have a fever (greater than 100.4 F or 38 C)?: No Have you tested positive for COVID-19?: No Exposed to someone with COVID-19 in past 14 days?: No Do you have a sore throat?: No Do you have a cough?: No Do you have any weakness?: No Are you experiencing any nausea/vomitting?: No Do you have any diarrhea?: No Are you experiencing any unusual bleeding?: No Do you have any muscle aches/pain?: No Do you have any abdominal pain?: No Are you experiencing loss of taste or smell?: No Other Medical History Have you received the Pneumonia Vaccine: No Review of Systems Review of Systems Review of systems (narrative): Negative *Cardiovascular Comments: Negative *Gastrointestinal Comments: Negative *Genitourinary Comments: Negative *Musculoskeletal Comments: Negative *Neurologic Comments: Negative Meds Home Medications and Allergies Home Medications ?Medication ?Instructions ?Recorded ?Confirmed ?Type cetirizine 10 mg tablet (Zyrtec) 10 mg PO DAILY PRN Allergic 01/21/24 04/26/25 History Symptoms ascorbic acid (vitamin C) 500 mg 500 mg PO DAILY 02/01/25 04/26/25 History tablet bupropion HCl 300 mg 24 hr tablet, 300 mg PO DAILY 02/01/25 04/26/25 History extended release ondansetron 4 mg disintegrating 4 mg PO Q8H PRN nausea and 02/01/25 04/26/25 Rx tablet vomiting 4 days #12 tabs dicyclomine 20 mg tablet 20 mg PO QID abdominal cramping 02/03/25 04/26/25 Rx #40 tabs New Prescriptions to Start Prescriptions: Allergies Allergy/AdvReac Type Severity Reaction Status Date / Time hydrocodone (From [place]) AdvReac Mild diaphoresis Verified 04/26/25 10:51 Exam *Routine HEENT Exam Head: Present normocephalic Eye: Present EOMI and PERRL ENT: Present mucous membranes moist *Routine Neck Exam Neck: Present supple *Routine Respiratory Exam Respiratory: Present CTA bilaterally *Routine Cardiovascular Exam Cardiovascular: Present RRR *Routine Abdominal Exam Abdominal: Present soft and normoactive bowel sounds; Absent tenderness *Routine Rectal Exam Rectal:: deferred *Routine Genitalia Exam Genitalia:: deferred *Routine Extremities Exam Extremities: Absent cyanosis, clubbing or edema *Routine Skin Exam Skin: Present warm; Absent rash *Routine Neurological Exam Neurological: Present alert and oriented X3 Assessment and Plan *Assessment and plan (1) Intermittent diarrhea: Status: Acute Category: Medical Code(s): R19.7 - Diarrhea, unspecified (2) Intermittent vomiting: Status: Acute Category: Medical Code(s): R11.10 - Vomiting, unspecified (3) History of small bowel obstruction: Status: Acute Category: Medical Code(s): Z87.19 - Personal history of other diseases of the digestive system (4) Intermittent abdominal pain: Status: Acute Category: Medical Code(s): R10.9 - Unspecified abdominal pain (5) Bleeding hemorrhoids: Status: Acute Category: Medical Code(s): K64.9 - Unspecified hemorrhoids Plan A/P: 1. Intermittent nausea, vomiting and diarrhea with intermittent abdominal pain is the preprocedural diagnosis. The patient also has a history of rectal bleeding presumably secondary to intraluminal hemorrhoids and has never had a colonoscopy. The patient will be anesthetized/sedated using MAC sedation. The patient has been seen and examined. Cardiac and lung assessment prior to the examination is stable. Proceed with planned diagnostic colonoscopy.
--- NOTE | 2025-04-26 06:42 | HMH.PROCNOTE ---
[facility] Procedure Note Date: 04/26/25 Time: 11:57 Procedure Note:: Colonoscopy Procedure Report: Colonoscopy Endoscopist: Donny Chacon II, MD Referring physician: Rosalio Joyce MD Date of Procedure: April 26, 2025 Equipment: Olympus [id number] adult colonoscope Sedation: MAC sedation Indication: Mr. Ty is a 35-year-old gentleman who is here for diagnostic colonoscopy. The patient has had intermittent episodes of nausea, vomiting, diarrhea and generalized abdominal pain. In July, he had a episode and had a CAT scan that showed what appeared to be gastroenteritis and this resolved. In October, he had another episode and had an x-ray that showed possible early small bowel obstruction. His symptoms resolved. He had another episode in January 2025 and went to the ED. His CAT scan showed air-fluid levels suggesting another PSBO. He has improved some with adherence to the dietary measures (avoidance of high residue foods and carbonation). The patient does have a history of bleeding and prolapsing) hemorrhoids. His maternal grandmother had colon cancer in his 70s. He did have abdominal hernia repair in 2009 but no other abdominal surgeries. He has never had a colonoscopy. The examination is deemed medically necessary for diagnostic colonoscopy. Procedure: Prior to the procedure, a history and physical exam was performed, and patient's medications and allergies were reviewed. The risks, benefits and alternatives of the sedation and procedure were discussed with the patient. All questions were answered and informed consent was obtained. The patient was brought to the procedure room. Patient identification and proposed procedure were verified by the physician and the nurse. The patient was placed in a left lateral decubitus position and the scope was passed under direct vision. Throughout the procedure, the patient's blood pressure, pulse, and oxygen saturations were monitored continuously. The colonoscopy was accomplished without difficulty. The patient tolerated the procedure well. Findings: On digital rectal examination there was normal rectal tone. There were no external hemorrhoids. The colonoscope was introduced through the anal canal to the rectum and advanced to the cecum. The ileocecal valve and appendiceal orifice were identified. The scope was advanced approximately 20 cm into the ileum (deeper intubation of the ileum) which appeared grossly normal. The scope was then withdrawn into the colon. The cecum, ascending, transverse, descending, sigmoid and rectum were grossly normal. There were no mucosal abnormalities identified. Upon retroflexion within the rectum there were grade 1-2 internal hemorrhoids. The preparation was excellent throughout with [place] Preparation Score of 9. The cecal time was 12 minutes. Impression: 1. Normal colonoscopy with intubation of the terminal ileum Plan: The patient is clinically improved. I do feel that he may have intra-abdominal adhesions from the prior hernia repair causing intermittent PSBO. I would recommend continuation of dietary measures and bulking fiber.
[2025-04-26 10:50] VITALS: BMI 50.8
[2025-04-26] MEDS: LACTATED RINGERS 1000ML 1,000 ML 50 ML IV (10:55)
[2025-04-26 10:56] VITALS: BP 129/70; PULSE 79; RESP 18; TEMP 36.1; O2SAT 98
--- NOTE | 2025-04-26 11:13 | EXP.ANES.CKL ---
[facility] Disclaimer: The information contained in this section may have been updated after the patient was seen, as this information can be updated by other users. Medical History Depression History of small bowel obstruction Elevated blood pressure reading Surgical History History of carpal tunnel release History of dental surgery H/O hernia repair Family History Father Hypertension Grandmother Coronary artery disease Cancer Social History Smoking Status: Never smoker second hand exposure: No alcohol intake: never substance use type: denies use current occupational status: employed Travel in the last 8 weeks?: None household members: children housing: house marital status: Have you lived/traveled outside [place] in past 30 days?: No Contact w/someone who lives/traveled outside [place] past 30 days?: No Exposure to someone with infectious disease in past 14 days?: No Do you have a fever (greater than 100.4 F or 38 C)?: No Have you tested positive for COVID-19?: No Exposed to someone with COVID-19 in past 14 days?: No Do you have a sore throat?: No Do you have a cough?: No Do you have any weakness?: No Are you experiencing any nausea/vomitting?: No Do you have any diarrhea?: No Are you experiencing any unusual bleeding?: No Do you have any muscle aches/pain?: No Do you have any abdominal pain?: No Are you experiencing loss of taste or smell?: No [facility] Anesthesia Checklist Patient Identification Patient Identification: Arm Band and Verbal (Name & ) Structural Data Admitted From: Home Planned Operative Procedure/s: colonscopy Consent for Planned Operative Procedure(s) Verified: Yes Verified Documents: Surgical Consent and History and Physical NPO Status Verified Time NPO: 00:00 Additional verifications Anesthesia Reactions: No Previous Colonoscopy: No Airway Assessment Mallampati Score:: Class II Dentition: Good Dentition Neurological Assessment Level of Consciousness: Awake, Alert and Appropriate Hx Seizures: No Numbness or tingling in extremities: No Anesthesia Plan Anesthesia Risk discussed: Yes Anesthesia Plan: Verified ASA Class: II Anesthesia Type: MAC
[2025-04-26 12:00] VITALS: BP 106/46; PULSE 77; RESP 18; TEMP 36.2; O2SAT 98
[2025-04-26 12:10] VITALS: BP 114/57; PULSE 68; RESP 16; O2SAT 99
[2025-04-26 12:20] VITALS: BP 110/52; PULSE 61; RESP 18; O2SAT 99
[2025-04-26 12:30] VITALS: BP 120/82; PULSE 71; RESP 16; O2SAT 99
== END 2025-04-26 12:33 | disposition home or self-care (01) ==
PROVIDERS: PCP Family Medicine; Visit Provider Internal Medicine Gastroenterology
PROC: 0DJD8ZZ Inspection of Lower Intestinal Tract, Via Natural or Artificial Opening Endoscopic (ICD-10-PCS; CPT 45378; principal; 2025-04-26 12:00)
DX: K64.0 First degree hemorrhoids (principal); K64.1 Second degree hemorrhoids; K64.9 Unspecified hemorrhoids; Z87.19 Personal history of other diseases of the digestive system; Z80.0 Family history of malignant neoplasm of digestive organs
CPT/HCPCS: 45378; J2003; J2704; J7120